=== PATIENT | male | born 1995 | race Caucasian/White ===

== ENCOUNTER 2019-07-20 06:23 | Day surgery (SDC) | payer OTHER ==
[2019-07-20 07:23] VITALS: BMI 20.2
--- NOTE | 2019-07-20 07:41 | HP ---
CHIEF COMPLAINT: Schizoaffective Disorder Primary Psychiatrist: [facility] HISTORY OF PRESENT ILLNESS: 24 year-old male with a PMH significant for schizoaffective disorder. Patient was charged with second degree burglary and was admitted to [facility] in April 2018 to restore competence to stand trial. He was subsequently transferred to [facility] after being found to no longer have a dangerous mental illness. He has been at [facility] for the past year. He presents today for his first ECT session. Recent Events: * none reported PAST MEDICAL HISTORY: Schizoaffective disorder PAST SURGICAL HISTORY: None reported Social History: Smoking: current every day Alcohol: not in past year Drugs: not in past year Vapes: not in past year Family history: Unwilling to discuss Allergies No Known Allergies Allergy (Verified 07/19/19 15:47) HOME MEDICATIONS: Home Medications Medication Instructions Recorded Docusate Sodium [Docusate 100 mg] 100 mg PO BID 07/19/19 Cholecalciferol (Vitamin D3) 2,000 unit PO DAILY 07/20/19 [Vitamin D3] Clozapine 275 mg PO BID 07/20/19 Ipratropium [place] 2 sprays SL BID 07/20/19 Polyethylene Glycol 3350 [Miralax 17 gm PO HS 07/20/19 (For Daily Use) -] Ziprasidone HCl [Geodon] 80 mg PO BID 07/20/19 REVIEW OF SYSTEMS CONSTITUTIONAL: Absent: fever, chills, diaphoresis, generalized weakness, malaise, loss of appetite, weight change HEENT: Absent: rhinorrhea, nasal congestion, throat pain, throat swelling, difficulty swallowing, mouth swelling, ear pain, eye pain, visual changes CARDIOVASCULAR: Absent: chest pain, syncope, palpitations, irregular heart rate, lightheadedness , peripheral edema RESPIRATORY: Absent: cough, shortness of breath, dyspnea with exertion, orthopnea, wheezing, stridor, hemoptysis GASTROINTESTINAL: Absent: abdominal pain, abdominal distension, nausea, vomiting, diarrhea, constipation, melena, hematochezia GENITOURINARY: Absent: dysuria, frequency, urgency, hesitancy, hematuria, flank pain, genital pain MUSCULOSKELETAL: Absent: myalgia, arthralgia, joint swelling, back pain, neck pain SKIN: Absent: rash, itching, pallor HEMATOLOGIC/IMMUNOLOGIC: Absent: easy bleeding, easy bruising, lymphadenopathy, frequent infections ENDOCRINE: Absent: unexplained weight gain, unexplained weight loss, heat intolerance, cold intolerance NEUROLOGIC: Absent: headache, focal weakness or paresthesias, dizziness, unsteady gait, seizure, mental status changes, bladder or bowel incontinence PHYSICAL EXAMINATION Vital Signs - 24 hr 07/20/19 07:18 Temperature 97.6 F Pulse Rate 93 H Respiratory 18 Rate Blood Pressure 116/72 O2 Sat by Pulse 97 Oximetry (%) GENERAL: Awake, alert, and fully oriented, in no acute distress. HEAD: Normal with no signs of trauma. EYES: Pupils equal, round and reactive to light, sclera anicteric, conjunctiva clear. LUNGS: Breath sounds equal, clear to auscultation bilaterally. No wheezes, and no crackles. No accessory muscle use. HEART: Regular rate and rhythm, normal S1 and S2 ABDOMEN: Soft, nontender, not distended MUSCULOSKELETAL: Normal range of motion at all joints. No bony deformities or tenderness. No CVA tenderness. UPPER EXTREMITIES: 2+ pulses, warm, well-perfused. No cyanosis. No clubbing. No peripheral edema. LOWER EXTREMITIES: 2+ pulses, warm, well-perfused. No calf tenderness. No peripheral edema. NEUROLOGICAL: Cranial nerves II-XII intact. Normal speech. ASSESSMENT/PLAN: 24 year-old male with a PMH significant for schizoaffective disorder. He presents today for his first ECT session. Cardiac --no cardiac history --Revised Cardiac Risk Index for Pre-Operative Risk: 0 points, 0.4% risk of major cardiac event Pulmonary --no pulmonary history Neurological --no neurological or neurosurgical history; no history of trauma Anesthesia --no reported problems with anesthesia ECT is a low risk procedure. The relative benefits of the planned procedure outweigh the relative risks for this patient at this time. Visit type - Emergency Visit Emergency Visit: No - New Patient This patient is new to me today: Yes Date on this admission: 07/20/19 - Critical Care Critical Care patient: No
[2019-07-20 08:54] VITALS: TEMP 97.9
[2019-07-20 09:14] VITALS: BP 122/79; PULSE 92
== END 2019-07-20 09:15 | disposition home or self-care (01) ==
LOC: FECT 06:23
PROVIDERS: ATTEND Psychiatry & Neurology Psychiatry
PROC: GZB4ZZZ Other Electroconvulsive Therapy (ICD-10-PCS; principal; 2019-07-20 07:00)
DX: F32.9 Major depressive disorder, single episode, unspecified (principal)
CPT/HCPCS: 90870; 94760

== ENCOUNTER 2019-07-24 05:50 | Day surgery (SDC) | payer OTHER ==
[2019-07-20 12:29] VITALS: BMI 20.2
[2019-07-24] MEDS ORDERED: ONDANSETRON 4 MG/2 ML VIAL IVPUSH PRN (08:04)
[2019-07-24] MEDS ORDERED: ACETAMINOPHEN 325 MG TABLET (FP) PO PRN (08:04)
[2019-07-24 08:10] VITALS: TEMP 97.5
[2019-07-24 08:33] VITALS: BP 114/72; PULSE 92
== END 2019-07-24 08:35 | disposition home or self-care (01) ==
LOC: FECT 05:50
PROVIDERS: ATTEND Psychiatry & Neurology Psychiatry
PROC: GZB4ZZZ Other Electroconvulsive Therapy (ICD-10-PCS; principal; 2019-07-24 08:15)
DX: F25.9 Schizoaffective disorder, unspecified (principal)
CPT/HCPCS: 90870; 94760

== ENCOUNTER 2019-07-26 05:43 | Day surgery (SDC) | payer OTHER ==
[2019-07-20 12:34] VITALS: BMI 20.2
[2019-07-26] MEDS ORDERED: ACETAMINOPHEN 325 MG TABLET (FP) PO PRN (08:02)
[2019-07-26 08:14] VITALS: TEMP 97.9
[2019-07-26 08:29] VITALS: BP 118/72; PULSE 73
== END 2019-07-26 08:31 | disposition home or self-care (01) ==
LOC: FECT 05:43
PROVIDERS: ATTEND Psychiatry & Neurology Psychiatry
PROC: GZB4ZZZ Other Electroconvulsive Therapy (ICD-10-PCS; principal; 2019-07-26 07:30)
DX: F25.9 Schizoaffective disorder, unspecified (principal)
CPT/HCPCS: 90870; 94760

== ENCOUNTER 2019-07-28 05:51 | Day surgery (SDC) | payer OTHER ==
[2019-07-20 12:36] VITALS: BMI 20.2
[2019-07-28] MEDS ORDERED: KETAMINE HCL 500 MG/10 ML VIAL ONE (06:59)
[2019-07-28 08:11] VITALS: TEMP 97.5
[2019-07-28 08:36] VITALS: BP 119/74; PULSE 86
[2019-07-28] MEDS ORDERED: ONDANSETRON 4 MG/2 ML VIAL IVPUSH PRN (09:44)
[2019-07-28] MEDS ORDERED: LACTATED RINGERS SOLUTION 1,000 ML IV SCH (09:45)
== END 2019-07-28 08:30 | disposition home or self-care (01) ==
LOC: FECT 05:51
PROVIDERS: ATTEND Psychiatry & Neurology Psychiatry
PROC: GZB4ZZZ Other Electroconvulsive Therapy (ICD-10-PCS; principal; 2019-07-28 08:00)
DX: F25.9 Schizoaffective disorder, unspecified (principal)
CPT/HCPCS: 90870; 94760

== ENCOUNTER 2019-08-02 05:43 | Day surgery (SDC) | payer OTHER ==
[2019-08-02 06:27] VITALS: TEMP 97.7; BMI 20.2
[2019-08-02] MEDS ORDERED: KETAMINE HCL 500 MG/10 ML VIAL ONE (07:01)
[2019-08-02] MEDS ORDERED: LACTATED RINGERS SOLUTION 1,000 ML IV SCH (07:45)
[2019-08-02 08:44] VITALS: BP 122/79; PULSE 96
== END 2019-08-02 08:45 ==
LOC: FECT 05:43
PROVIDERS: ATTEND Psychiatry & Neurology Psychiatry
PROC: GZB4ZZZ Other Electroconvulsive Therapy (ICD-10-PCS; principal; 2019-08-02 07:30)
DX: F25.9 Schizoaffective disorder, unspecified (principal)
CPT/HCPCS: 90870; 94760

== ENCOUNTER 2019-08-04 05:45 | Day surgery (SDC) | payer OTHER ==
[2019-07-28 13:47] VITALS: BMI 20.2
[2019-08-04] MEDS ORDERED: KETAMINE HCL 500 MG/10 ML VIAL ONE (07:46)
[2019-08-04 08:56] VITALS: TEMP 98.2
[2019-08-04 10:08] VITALS: BP 132/86; PULSE 86
== END 2019-08-04 09:40 | disposition home or self-care (01) ==
LOC: FECT 05:45
PROVIDERS: ATTEND Psychiatry & Neurology Psychiatry
PROC: GZB4ZZZ Other Electroconvulsive Therapy (ICD-10-PCS; principal; 2019-08-04 07:15)
DX: F25.9 Schizoaffective disorder, unspecified (principal)
CPT/HCPCS: 90870; 94760

== ENCOUNTER 2019-08-07 05:45 | Day surgery (SDC) | payer OTHER ==
[2019-08-02 08:26] VITALS: BMI 19.2
[2019-08-07 06:32] VITALS: TEMP 97.8
[2019-08-07] MEDS ORDERED: KETAMINE HCL 500 MG/10 ML VIAL ONE (06:49)
[2019-08-07] MEDS ORDERED: ONDANSETRON 4 MG/2 ML VIAL IVPUSH PRN (08:02)
[2019-08-07] MEDS ORDERED: PROMETHAZINE HCL 25 MG/1 ML VIAL IVPUSH PRN (08:02)
[2019-08-07] MEDS ORDERED: ACETAMINOPHEN 500 MG TABLET (FP) PO PRN (08:02)
[2019-08-07] MEDS ORDERED: LACTATED RINGERS SOLUTION 1,000 ML IV SCH (08:15)
[2019-08-07 08:50] VITALS: BP 130/80; PULSE 94
== END 2019-08-07 08:40 ==
LOC: FECT 05:45
PROVIDERS: ATTEND Psychiatry & Neurology Psychiatry
PROC: GZB4ZZZ Other Electroconvulsive Therapy (ICD-10-PCS; principal; 2019-08-07 07:30)
DX: F25.1 Schizoaffective disorder, depressive type (principal)
CPT/HCPCS: 90870; 94760

== ENCOUNTER 2019-08-09 05:39 | Day surgery (SDC) | payer OTHER ==
[2019-08-02 12:49] VITALS: BMI 20.2
[2019-08-09] MEDS ORDERED: KETAMINE HCL 500 MG/10 ML VIAL ONE (06:59)
[2019-08-09] MEDS ORDERED: LABETALOL HCL 5 MG/1 ML (100MG/20 ML VIAL) ONE (07:25)
[2019-08-09 08:21] VITALS: TEMP 98.2
[2019-08-09 09:04] VITALS: BP 128/87; PULSE 84
== END 2019-08-09 08:45 ==
LOC: FECT 05:39
PROVIDERS: ATTEND Psychiatry & Neurology Psychiatry
PROC: GZB4ZZZ Other Electroconvulsive Therapy (ICD-10-PCS; principal; 2019-08-09 07:15)
DX: F25.9 Schizoaffective disorder, unspecified (principal)
CPT/HCPCS: 90870; 94760